=== PATIENT | male | born 1995 | race Hispanic/Latino ===

== ENCOUNTER 2020-01-29 18:18 | Emergency (ER) | payer MEDICAID, OTHER ==
[2020-01-29] MEDS ORDERED: MORPHINE SULFATE 4 MG/1ML SYG ONE ×2 (18:52→19:09)
[2020-01-29] MEDS ORDERED: ONDANSETRON HCL 4 MG/2 ML VIAL ONE (18:52)
[2020-01-29 18:56] LABS: BASOPHILS % (AUTO) 0.4 % (0.0-5.0); EOSINOPHILS % (AUTO) 0.4 % (0.0-8.0); LYMPHOCYTES % (AUTO) 19.6 % (21.0-51.0); MEAN CORPUSCULAR HEMOGLOBIN 31.7 pg (27.0-33.0); MEAN CORPUSCULAR HGB CONC 35.1 g/dL (32.0-36.0); MEAN CORPUSCULAR VOLUME 90.2 fL (79-99); MONOCYTES % (AUTO) 10.6 % (3.0-13.0); NEUTROPHILS % (AUTO) 68.8 % (40.0-77.0); PLATELET COUNT (AUTO) 243 K/uL (130-400); RED BLOOD CELL COUNT(AUTO) 5.43 MIL/uL (4.50-6.20); RED CELL DISTRIBUTION WIDTH 11.8 % (11.0-15.5)
[2020-01-29 19:13] LABS: CREATININE 1.3 mg/dL (0.5-1.5); POTASSIUM 4.2 mmol/L (3.5-5.1)
[2020-01-29 19:17] LABS: ALBUMIN 4.6 g/dL (3.5-5.0); BILIRUBIN,TOTAL 0.9 mg/dL (0.2-1.0); TOTAL PROTEIN, SERUM 7.8 g/dL (6.0-8.3)
[2020-01-29] MEDS ORDERED: KETAMINE HCL 100 MG/ML 5ML VIAL IJ ONE (19:23)
[2020-01-29] MEDS ORDERED: KETOROLAC TROMETHAMINE 30MG/ML ONE (20:11)
== END 2020-01-29 21:26 | disposition home or self-care (01) ==
LOC: EDH 18:18
DX: S53.104A Unspecified dislocation of right ulnohumeral joint, initial encounter (principal); V89.2XXA Person injured in unspecified motor-vehicle accident, traffic, initial encounter; Y93.89 Activity, other specified; Y92.830 Public park as the place of occurrence of the external cause; Y99.8 Other external cause status
CPT/HCPCS: 24600; 36415; 73070 ×2; 80053; 85025; 96374; 96375; 99285; J1885; J2270 ×2; J2405; J3490; 99151

== ENCOUNTER 2024-04-12 17:11 | Emergency (ER) | payer OTHER ==
[~2024-04-12] VITALS: Ht 170.2 cm; Wt 95.3 kg
[2024-04-12 18:59] VITALS: BP 136/77; PULSE 94; RESP 20
== END 2024-04-12 19:50 ==
LOC: EEVIPCON 17:11 → EDH 17:11
DX: Z02.83 Encounter for blood-alcohol and blood-drug test (principal); Z53.21 Procedure and treatment not carried out due to patient leaving prior to being seen by health care provider